=== PATIENT | female | born 1975 | race Caucasian/White ===

== ENCOUNTER 2021-05-29 21:20 | Emergency (ER) | payer OTHER ==
[~2021-05-29] VITALS: Ht 162.6 cm; Wt 111.1 kg
[2021-05-30] MEDS ORDERED: NORCO5 PO (00:11)
[2021-05-30 00:17] VITALS: BP 138/82
== END 2021-05-30 00:18 | disposition home or self-care (01) ==
LOC: ER 21:20
DX: S52.042A Displaced fracture of coronoid process of left ulna, initial encounter for closed fracture (principal); S00.83XA Contusion of other part of head, initial encounter; E11.9 Type 2 diabetes mellitus without complications; F17.210 Nicotine dependence, cigarettes, uncomplicated; Z90.49 Acquired absence of other specified parts of digestive tract; Z90.710 Acquired absence of both cervix and uterus; Z88.0 Allergy status to penicillin; Z88.2 Allergy status to sulfonamides; W10.8XXA Fall (on) (from) other stairs and steps, initial encounter; Y93.89 Activity, other specified; Y92.89 Other specified places as the place of occurrence of the external cause; Y99.8 Other external cause status